=== PATIENT | female | born 1955 | race Caucasian/White ===

== ENCOUNTER 2022-03-11 08:09 | Day surgery (SDC) | payer OTHER ==
[2022-03-08 09:26] VITALS: BMI 27.4
[2022-03-11] MEDS ORDERED: PROPOFOL 120 ML ONE (08:14)
[2022-03-11] MEDS ORDERED: LIDOCAINE HCL/PF 2% SDV 5ML VIAL ONE (08:14)
[2022-03-11 08:38] VITALS: RESP 18; TEMP 97
[2022-03-11 10:53] VITALS: BP 125/60; PULSE 65
== END 2022-03-11 11:00 | disposition home or self-care (01) ==
LOC: FASU-ENDO 08:09
PROVIDERS: ATTEND Internal Medicine Gastroenterology
PROC: 0DJD8ZZ Inspection of Lower Intestinal Tract, Via Natural or Artificial Opening Endoscopic (ICD-10-PCS; principal; 2022-03-11 09:12)
DX: Z12.11 Encounter for screening for malignant neoplasm of colon (principal); Z86.010 Personal history of colon polyps